=== PATIENT | female | born 1960 | race Caucasian/White ===

== ENCOUNTER 2024-02-15 11:07 | Observation (INO) ==
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
[2024-02-15] MEDS ORDERED: TYLENOL PO PRN (16:04)
[2024-02-15] MEDS ORDERED: ZYPREXA IM PRN (16:04)
[2024-02-15] MEDS ORDERED: ZOFRAN ODT PO PRN (16:04)
[2024-02-15 16:16] LABS: SARS COV-2 RNA RAPID NAAT NEGATIVE (NEGATIVE)
[2024-02-15 16:35] VITALS: BMI 17.2
[2024-02-15] MEDS ORDERED: NICODERM 14 MG TD PRN (18:02)
[2024-02-15] MEDS ORDERED: OXYCODONE PO PRN (21:49)
[2024-02-15] MEDS: KEPPRA PO SCH (22:39)
[2024-02-16 05:17] VITALS: RESP 19
[2024-02-16] MEDS: VALIUM PO SCH (10:03)
[2024-02-16] MEDS: KEPPRA PO SCH (10:04)
[2024-02-16] MEDS: ASPIRIN CHEWABLE PO SCH (10:04)
[2024-02-16] MEDS: CELEXA PO SCH (10:04)
[2024-02-16 10:22] VITALS: BP 124/69; PULSE 97; TEMP 98.2
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
[2024-02-16] MEDS ORDERED: DECADRON PO SCH (21:00)
[2024-02-16] MEDS ORDERED: LIPITOR PO SCH (21:00)
== END 2024-02-16 17:00 | disposition home or self-care (01) ==
LOC: MEDSURG B 11:07 → SCU 11:07 → ED 11:07 → SCU 16:19
PROVIDERS: ADMIT Hospitalist; ATTEND Physician Assistant